=== PATIENT | female | born 1970 | race Caucasian/White ===

== ENCOUNTER 2018-11-07 08:40 | Emergency (ER) | payer BC, OTHER ==
[2018-11-07] MEDS ORDERED: HYDROCODONE/APAP 10/325 TAB ONE (09:06)
[2018-11-07] MEDS ORDERED: CYCLOBENZAPRINE 10 MG TAB ONE (09:06)
[2018-11-07] MEDS ORDERED: LIDOCAINE 5% PATCH TD ONE (09:30)
--- NOTE | 2018-11-07 10:28 | EDPHYS ---
Physician Documentation [facility] Name: Linda Cerda Age: 48 yrs Sex: Female : 1970 Arrival Date: 11/07/2018 Time: 08:41 Bed 20 Private MD: ALLEN Physician Raymond Lomax HPI: 11/07 09:02 This 48 yrs old Female presents to ER via Ambulatory with complaints of Back pm1 Pain. 09:02 The patient presents with pain that is acute. The symptoms are located in the right low pm1 back. Onset: The symptoms/episode began/occurred 2 day(s) ago. The pain radiates to the right leg. Associated signs and symptoms: Pertinent negatives: abdominal pain, chest pain, dysuria, fever, numbness, tingling. The problem was sustained when bending over, when lifting. Modifying factors: The patient symptoms are alleviated by nothing, the patient symptoms are aggravated by bending, movement. Severity of symptoms: in the emergency department the symptoms are actually worse. The patient has not recently seen a physician. Patient was moving this week and then she bent over to sisal picker a can and she felt right sided low back pain that radiated down her right leg. Patient with a history sciatica in the past. Took ibuprofen at 0600 today. Historical: - Allergies: 08:54 No Known Allergies; ss - PMHx: 08:54 Hypertension; ss - PSHx: 08:54 cyst removed from R wrist; ss - Immunization history:: Adult Immunizations up to date. - Social history:: Smoking status: Patient/guardian denies using tobacco. - Ebola Screening: : Patient denies exposure to infectious person Patient denies travel to an Ebola-affected area in the 21 days before illness onset. ROS: 09:02 Constitutional: Negative for fever, chills, and weight loss, Eyes: Negative for injury, pm1 pain, redness, and discharge, ENT: Negative for injury, pain, and discharge, Neck: Negative for injury, pain, and swelling, Cardiovascular: Negative for chest pain, palpitations, and edema, Respiratory: Negative for shortness of breath, cough, wheezing, and pleuritic chest pain, Abdomen/GI: Negative for abdominal pain, nausea, vomiting, diarrhea, and constipation. 09:02 : Negative for injury, bleeding, discharge, and swelling, MS/Extremity: Negative for injury and deformity, Skin: Negative for injury, rash, and discoloration, Neuro: Negative for headache, weakness, numbness, tingling, and seizure. 09:02 Back: Positive for pain with movement, of the right low back. Exam: 09:02 Constitutional: This is a well developed, well nourished patient who is awake, alert, pm1 and in no acute distress. Head/Face: Normocephalic, atraumatic. Neck: Trachea midline, no thyromegaly or masses palpated, and no cervical lymphadenopathy. Supple, full range of motion without nuchal rigidity, or vertebral point tenderness. No Meningismus. Chest/axilla: Normal chest wall appearance and motion. Nontender with no deformity. No lesions are appreciated. Cardiovascular: Regular rate and rhythm with a normal S1 and S2. No gallops, murmurs, or rubs. Normal PMI, no JVD. No pulse deficits. Respiratory: Lungs have equal breath sounds bilaterally, clear to auscultation and percussion. No rales, rhonchi or wheezes noted. No increased work of breathing, no retractions or nasal flaring. Abdomen/GI: Soft, non-tender, with normal bowel sounds. No distension or tympany. No guarding or rebound. No evidence of tenderness throughout. 09:02 Skin: Warm, dry with normal turgor. Normal color with no rashes, no lesions, and no evidence of cellulitis. MS/ Extremity: Pulses equal, no cyanosis. Neurovascular intact. Full, normal range of motion. 09:02 Back: normal spinal alignment noted, vertebral tenderness, is not appreciated, muscle spasm, is appreciated in the right low back. 09:02 Neuro: Orientation: is normal, Motor: is normal, moves all fours, strength is 5/5 in all extremities, Sensation: is normal, no obvious gross deficits. Vital Signs: 08:51 BP 147 / 97; Pulse 79; Resp 16; Temp 98.1(TE); Pulse Ox 99% on R/A; Weight 62.6 kg; ss Height 5 ft. 2 in. (157.48 cm); Pain 7/10; 10:08 BP 136 / 87; Pulse 74; Resp 18; Pulse Ox 99% on R/A; Pain 3/10; em 08:51 Body Mass Index 25.24 (62.60 kg, 157.48 cm) MDM: 08:52 Patient medically screened. pm1 09:08 Data reviewed: vital signs. pm1 10:26 Counseling: I had a detailed discussion with the patient and/or guardian regarding: the pm1 historical points, exam findings, and any diagnostic results supporting the discharge/admit diagnosis, the need for outpatient follow up, to return to the emergency department if symptoms worsen or persist or if there are any questions or concerns that arise at home. Administered Medications: 09:10 Drug: [place] 10 mg-325 mg 1 tabs Route: PO; em 10:11 Follow up: Response: No adverse reaction; Pain is decreased em 09:10 Drug: Flexeril 10 mg Route: PO; em 10:11 Follow up: Response: No adverse reaction; Pain is decreased em 09:26 Dru% lidocaine patch 1 patches Route: Topical; Site: affected area; em 10:11 Follow up: Response: No adverse reaction; Pain is decreased em Disposition: 15:24 Co-signature as Attending Physician, Raymond Lomax MD I agree with the assessment and franny plan of care. Disposition: 11/07/18 10:27 Discharged to Home. Impression: Lumbago with sciatica, right side. - Condition is Stable. - Discharge Instructions: Back Pain, Adult, Sciatica. - Prescriptions for Tylenol- Codeine #3 300-30 mg Oral Tablet - take 2 tablets by ORAL route every 6 hours As needed; 20 tablet. Cyclobenzaprine 10 mg Oral Tablet - take 1 tablet by ORAL route every 8 hours As needed; 30 tablet. Lidoderm 5 % Topical adhesive patch,medicated - apply 1 patch by TRANSDERMAL route once daily; 30 Each. - Medication Reconciliation Form, Thank You Letter, Antibiotic Education, Prescription Opioid Use form. - Follow up: Emergency Department; When: As needed; Reason: Worsening of condition. Follow up: Private Physician; When: 2 - 3 days; Reason: Recheck today's complaints, Continuance of care, Re-evaluation by your physician. - Problem is new. - Symptoms have improved. Signatures: Raymond Lomax MD MD cha Munoz, Edgar, DOCK BOSS DOCK BOSS em Rhoda Sanchez RN RN ss Sean Muro, VALDO APPEALS NURSE pm1 Corrections: (The following items were deleted from the chart) 10:41 10:27 11/07/2018 10:27 Discharged to Home. Impression: Lumbago with sciatica, right ss side. Condition is Stable. Forms are Medication Reconciliation Form, Thank You Letter, Antibiotic Education, Prescription Opioid Use. Follow up: Emergency Department; When: As needed; Reason: Worsening of condition. Follow up: Private Physician; When: 2 - 3 days; Reason: Recheck today's complaints, Continuance of care, Re-evaluation by your physician. Problem is new. Symptoms have improved. pm1
--- NOTE | 2018-11-07 10:28 | ER ---
Nurse's Notes [facility] Name: Linda Cerda Age: 48 yrs Sex: Female : 1970 Arrival Date: 11/07/2018 Time: 08:41 Bed 20 Private MD: Diagnosis: Lumbago with sciatica, right side Presentation: 11/07 08:52 Presenting complaint: Patient states: R low back pain that radiates down R leg. Began a ss few days ago while moving but is much worse today. Transition of care: patient was not received from another setting of care. Onset of symptoms was November 04, 2018. Risk Assessment: Do you want to hurt yourself or someone else? Patient reports no desire to harm self or others. Initial Sepsis Screen: Does the patient meet any 2 criteria? No. Patient's initial sepsis screen is negative. Does the patient have a suspected source of infection? No. Patient's initial sepsis screen is negative. Care prior to arrival: None. 08:52 Method Of Arrival: Ambulatory ss 08:52 Acuity: LUIS MIGUEL 4 ss Historical: - Allergies: 08:54 No Known Allergies; ss - PMHx: 08:54 Hypertension; ss - PSHx: 08:54 cyst removed from R wrist; ss - Immunization history:: Adult Immunizations up to date. - Social history:: Smoking status: Patient/guardian denies using tobacco. - Ebola Screening: : Patient denies exposure to infectious person Patient denies travel to an Ebola-affected area in the 21 days before illness onset. Screenin:00 Abuse screen: Denies threats or abuse. Nutritional screening: No deficits noted. em Tuberculosis screening: No symptoms or risk factors identified. Fall Risk None identified. Assessment: 09:00 General: Appears in no apparent distress. uncomfortable, Behavior is calm, cooperative, em Denies fever. Pain: Complains of pain in right low back Pain radiates to right leg Pain began 1 day ago. Neuro: Level of Consciousness is awake, alert, obeys commands, Oriented to person, place, time, situation. Cardiovascular: Capillary refill < 3 seconds Patient's skin is warm and dry. Respiratory: Airway is patent Respiratory effort is even, unlabored, Respiratory pattern is regular, symmetrical. GI: Patient currently denies abdominal pain. : Denies burning with urination, discharge, urinary frequency, vaginal bleeding. Derm: Skin is intact, is healthy with good turgor, Skin is pink, warm \T\ dry. Musculoskeletal: Capillary refill < 3 seconds, Range of motion: intact in all extremities. 09:15 General: The previous assessment is accurate, call light remains within reach. ss 10:10 Reassessment: Patient appears in no apparent distress at this time. Patient and/or em family updated on plan of care and expected duration. Pain level reassessed. Patient is alert, oriented x 3, equal unlabored respirations, skin warm/dry/pink. rates pain 3/10 Patient states feeling better. Patient states symptoms have improved. Vital Signs: 08:51 BP 147 / 97; Pulse 79; Resp 16; Temp 98.1(TE); Pulse Ox 99% on R/A; Weight 62.6 kg; ss Height 5 ft. 2 in. (157.48 cm); Pain 7/10; 10:08 BP 136 / 87; Pulse 74; Resp 18; Pulse Ox 99% on R/A; Pain 3/10; em 08:51 Body Mass Index 25.24 (62.60 kg, 157.48 cm) ED Course: 08:41 Patient arrived in ED. cf2 08:51 Sean Muro NP is PHCP. pm1 08:51 Raymond Lomax MD is Attending Physician. pm1 08:51 Arm band placed on right wrist. ss 08:54 Triage completed. ss 09:00 Patient has correct armband on for positive identification. Bed in low position. Call em light in reach. Pulse ox on. NIBP on. 09:03 Parrish Trinidad LVN is Primary Nurse. em 10:40 No provider procedures requiring assistance completed. Patient did not have IV access ss during this emergency room visit. Administered Medications: 09:10 Drug: [place] 10 mg-325 mg 1 tabs Route: PO; em 10:11 Follow up: Response: No adverse reaction; Pain is decreased em 09:10 Drug: Flexeril 10 mg Route: PO; em 10:11 Follow up: Response: No adverse reaction; Pain is decreased em 09:26 Dru% lidocaine patch 1 patches Route: Topical; Site: affected area; em 10:11 Follow up: Response: No adverse reaction; Pain is decreased em Outcome: 10:27 Discharge ordered by . pm1 10:40 Discharged to home ambulatory. 10:40 Condition: good 10:40 Discharge instructions given to patient, Instructed on discharge instructions, follow up and referral plans. no drinking with medication, no driving heavy equipment, medication usage, Demonstrated understanding of instructions, follow-up care, medications, Prescriptions given X 3. 10:41 Patient left the ED. Signatures: Parrish Trinidad LVN LVN Rhoda Woody RN RN Sean Muro NP [employer] E[employer]OR pm1 Pedro Jeronimo cf2
== END 2018-11-07 10:41 | disposition home or self-care (01) ==
LOC: ER 08:40
DX: M54.41 Lumbago with sciatica, right side (principal)
CPT/HCPCS: 99283